=== PATIENT | female | born 2000 | race Caucasian/White ===

== ENCOUNTER 2022-10-30 10:52 | Outpatient (CLI) | payer OTHER, SELFPAY | END 2022-10-30 10:53 | disposition home or self-care (01) | LOC: NFLDREF 10-31 12:05 | PROVIDERS: PCP Physician Assistant Medical; Referring Provider Physician Assistant Medical; Visit Provider Physician Assistant Medical | DX: D50.9 Iron deficiency anemia, unspecified (principal); R53.83 Other fatigue | CPT/HCPCS: 82306; 82607; 83540; 83550; 84443 ==

== ENCOUNTER 2023-03-05 10:35 | Outpatient (CLI) | payer OTHER, SELFPAY ==
--- OUTSIDE RECORDS SUMMARY | 2023-03-05 10:38 | XMS_ITS | Clinical Summary ---
Author Name Unknown Organization [facility] Address [place], [place] [address] Care Team Providers Care Home Health Billing Specialist Name Role Phone Evens Mueller MD Primary Care Provider + Allergies No known active allergies Medications Medication Sig Dispensed Refills Start Date End Date Status adapalene (DIFFERIN) 0.1 % cream 0 10/21/2021 Active citalopram (CELEXA) 20 mg tablet 0 10/22/2021 Active Active Problems No known active problems Immunizations Name Administration Dates Next Due COVID-19 vaccine (Moderna 100mcg/0.5mL) PF, MDV 04/23/2022 COVID-19 vaccine (Moderna 50 mcg/0.5mL) 12YO+ BIVALENT PF, MDV 06/24/2022 DTP-HIB 05/07/2001 DTaP 09/22/2005, 1,2000,03/26 DTaP-HIB (TriHIBIT) 05/07/2001 HIB PRP-T (ActHIB,Hiberix) 2000,2000 ,2000 HPV 9 (Gardasil 9) 09/09/2014 Hepatitis A (Peds) 09/09/2014 Hepatitis B (Adult) 2000,2000 Hepatitis B, Unspecified 2000,2000 Human Papilloma Virus Vaccine 10/05/2012 Inactivated Polio Vaccine 09/22/2005,,2000,03/26 Influenza, IIV3 (Age >=3 years) 01/02/2003 Influenza, IIV4 05/05/2022 MMR 09/22/2005,05/07/2001 Meningococcal Vaccine (Menactra) 10/05/2012 Pneumococcal conj 7-Valent (Prevnar 7) 1,2000,2000 Tdap 06/04/2022,08/19/2011 Varicella Vaccine 08/19/2011,05/07/2001 Family History Medical History Relation Name Comments Diabetes Father Relation Name Status Comments Father Social History Tobacco Use Types Packs/Day Years Used Date Smoking Tobacco: Never Smokeless Tobacco: Never Tobacco Cessation:Counseling Given: Yes Alcohol Use Standard Drinks/Week Comments Yes 0 (1 standard drink = 0.6 oz pur e alcohol) occ PHQ-2 Answer Date Recorded PHQ-2 TOTAL SCORE 0 10/29/2021 Social Connections Answer Date Recorded Frequency of Communication with Friends and Fami ly Not on file 10/29/2021 Sex and Gender Information Value Date Recorded Sex Assigned at Not on file Gender Identity Not on file Sexual Orientation Not on file Obstetrics History Last Filed Vital Signs Vital Sign Reading Time Taken Comments Blood Pressure 119/74 10/29/2021 3:43 PM CDT Pulse 70 10/29/2021 3:43 PM CDT Temperature - - Respiratory Rate - - Oxygen Saturation 99% 10/29/2021 3:43 PM CDT Inhaled Oxygen Concentration - - Weight 95.4 kg (210 lb 6.4 oz) 10/29/2021 3:43 P M CDT Height 163.2 cm (5' 4.25) 10/29/2021 3:43 PM CD T Body Mass Index 35.83 10/29/2021 3:43 PM CDT Plan of Treatment Health Maintenance Due Date Last Done Comments HIV for age 15-65 02/02/2015 Chlamydia for age 16-24 2016 COVID-19 vaccine series ( season) 2022 06/24/2022, 04/23/2022 Influenza for age 9-49 10/10/2022 3, 01/02/2003 BMI (ht and wt on same day) for age 18+ 10/29/2022 10/29/2021 Depression screening for age 12+ 10/30/2022 10/30/2021, 10/29/2021 Pap test for age 21-65 05/13/2024 05/13/2021 Tetanus booster 06/04/2032 06/04/2022, 08/19/2011 Pneumococcal series for age 6-64 Aged Out 2000, 2000, 2000 No longer eligible based on patient's age to complete this topic HPV series for age 9-26 Completed 09/10/19, 10/05/2012 Hepatitis C screening for ag e 18-79 Completed 10/29/2021 Tdap Completed 06/04/2022, 08/19/2011 Care Teams Home Health Billing Specialist Relationship Specialty Start Date End Date Evens Mueller MD [address] [place] [address] PCP - General Family Practice 10/29/21
--- OUTSIDE RECORDS SUMMARY | 2023-03-05 10:38 | XMS_ITS | Encounter Summary ---
Author Name Unknown Organization [place] Address [facility] [place] [address] Care Team Providers Care Advanced Practice Psychiatric Nurse Name Role Phone No Ref-Primary, Physician Primary Care Provider Marian Manzanares APRN CAFETERIA CASHIER Unavailable + Encounter Details Date Type Department Care Team (Late st Contact Info) Description 12/07/2021 MyC Medical Advice [facility] [address] [place] [phone] Marian Manzanares APRN CAFETERIA CASHIER [address] [place] [address] Social History Tobacco Use Types Packs/Day Years Used Date Smoking Tobacco: Never Smokeless Tobacco: Never Comments:Dad smokes outside Alcohol Use Standard Drinks/Week Comments Not Asked 0 (1 standard drink = 0.6 oz pur e alcohol) PHQ-2 Answer Date Recorded PHQ-2 Score 0 11/11/2021 Sex and Gender Information Value Date Recorded Sex Assigned at Not on file Gender Identity Not on file Sexual Orientation Not on file documented as of this encounter Plan of Treatment Not on file documented as of this encounter Visit Diagnoses Not on filedocumented in this encounter Care Teams Advanced Practice Psychiatric Nurse Relationship Specialty Start Date End Date No Ref-Primary, Physician PCP - General 11/11/21 Marian Manzanares APRN CAFETERIA CASHIER [id number] [id number] Assigned PCP 10/24/21 documented as of this encounter
--- OUTSIDE RECORDS SUMMARY | 2023-03-05 10:38 | XMS_ITS | Referral Summary ---
Author Name Unknown Organization [place] Address Replaced by [facility] [place] [address] Care Team Providers Care Glassware Finisher Name Role Phone No Ref-Primary, Physician Primary Care Provider [facility] Hicks[facility] urban Sumaya MAHNAZ NUCLEAR PLANT CONSTRUCTION WORKER Unavailable + Allergies Active Allergy Reactions Criticality Noted Date Comments No Known Drug Allergy 06/07/2002 Medications Medication Sig Dispensed Refills Start Date End Date Status TYLENOL CHILDRENS COUGH 15-1-5-160 MG/5ML OR SYRP prn 0 Active TAMIFLU 12 MG/ML OR SUSRIndications:Influ ibis with other respiratory manifestations 3.75mL PO BID x 5 days QS 0 04/06/2007 Active Additional Information Patient not taking.Reported on 11/11/2021 ondansetron (ZOFRAN ODT) 4 MG ODT tabIndications:Nausea Take 2 tablets (8 mg) by mouth every 8 hours as needed for nausea 30 tablet 1 12/09/2021 Active Active Problems Problem Noted Date Diagnosed Date Class 2 severe obesity with serious comorbidity and body mass index (BMI) of 35.0 to 35.9 in adult, unspecified obesity type 11/13/2021 Last Assessment & Plan: Is having nausea and stomach pains with the Saxenda. Will prescribe Zofran to help with the side effects. Hopefully these side effects will subside with time. Consider taking it at nighttime or we can use a lower dose for longer. Elevated liver enzymes 11/13/2021 Last Assessment & Plan: AST 66 ALT 107 NAFLD fibrosis score is -3.45 which is in the severity of F0-F2 DD includes NAFLD/ALD, viral illness, Hepatitis C and B were negative, iron studies and ferritin were normal CBC normal TSH 2 We are working on decreasing processed foods out of her diet, will have future recommendations of eliminating alcohol, avoiding fructose and high fructose corn syrup. Immunizations Name Administration Dates Next Due DTAP (<7y) 09/22/2005,2000,2000 ,2000 DTP-Hib 05/07/2001 HIB (PRP-T) 2000,2000,2000 HepB 2000,2000,2000 ,2000 Influenza (IIV3) PF 01/02/2003 MMR 09/22/2005,05/07/2001 Pneumococcal (PCV 7) 2000,2000,03/26 Poliovirus, inactivated (IPV) 09/22/2005, 001,2000,2000 Varicella 05/07/2001 Social History Tobacco Use Types Packs/Day Years Used Date Smoking Tobacco: Never Smokeless Tobacco: Never Comments:Dad smokes outside Alcohol Use Standard Drinks/Week Comments Not Asked 0 (1 standard drink = 0.6 oz pur e alcohol) PHQ-2 Answer Date Recorded PHQ-2 Score 0 11/11/2021 Adolescent Education Answer Date Record ed Getting School Help Needed Not on file 11/25 Sex and Gender Information Value Date Recorded Sex Assigned at Not on file Gender Identity Not on file Sexual Orientation Not on file Last Filed Vital Signs Vital Sign Reading Time Taken Comments Blood Pressure 84/40 09/22/2005 1:45 PM CDT Pulse - - Temperature 37.8 ??C (100 ??F) 04/06/2007 6:00 PM ETL INFORMATICA DEVELOPER Respiratory Rate - - Oxygen Saturation - - Inhaled Oxygen Concentration - - Weight 94.3 kg (208 lb) 11/05/2021 3:38 PM CDT Height 162.6 cm (5' 4) 11/05/2021 3:38 PM CDT Body Mass Index 35.7 11/05/2021 3:38 PM CDT Plan of Treatment Not on file Care Teams Glassware Finisher Relationship Specialty Start Date End Date No Ref-Primary, Physician PCP - General 11/11/21 Marian Manzanares APRN NUCLEAR PLANT CONSTRUCTION WORKER [id number] [id number] Assigned PCP 10/24/21
--- OUTSIDE RECORDS SUMMARY | 2023-03-05 10:38 | XMS_ITS | Encounter Summary ---
Author Name Unknown Organization [place] Address [facility] [place] [address] Care Team Providers Care Doughnut Fryer Name Role Phone No Ref-Primary, Physician Primary Care Provider Marian Manzanares APRN PRICER Unavailable + Encounter Details Date Type Department Care Team (Late st Contact Info) Description 12/25/2021 MyC Medical Advice [facility] [address] [place] [phone] Marian Manzanares APRN PRICER [address] [place] [address] Social History Tobacco Use Types Packs/Day Years [...] on filedocumented in this encounter Care Teams Doughnut Fryer Relationship Specialty Start Date End Date No Ref-Primary, Physician PCP - General 11/11/21 Marian Manzanares APRN PRICER [phone] [address] [phone] Assigned PCP 10/24/21 documented as of this encounter
--- OUTSIDE RECORDS SUMMARY | 2023-03-05 10:38 | XMS_ITS | Encounter Summary ---
Author Name Unknown Organization [place] Address [facility] [place] [address] Care Team Providers Care Furniture Lumber Production Worker Name Role Phone No Ref-Primary, Physician Primary Care Provider Marian Manzanares APRN MANAGER SUBWAY Unavailable + Encounter Details Date Type Department Care Team (Late st Contact Info) Description 12/26/2021 MyC Medical Advice [facility] [address] [place] [phone] Marian Manzanares APRN MANAGER SUBWAY [address] [place] [address] Social History Tobacco Use Types Packs/Day Years [...] on filedocumented in this encounter Care Teams Furniture Lumber Production Worker Relationship Specialty Start Date End Date No Ref-Primary, Physician PCP - General 11/11/21 Marian Manzanares APRN MANAGER SUBWAY [id number] [id number] Assigned PCP 10/24/21 documented as of this encounter
--- OUTSIDE RECORDS SUMMARY | 2023-03-05 10:38 | XMS_ITS | Clinical Summary ---
Author Name Unknown Organization [place] Address On license of [facility] [place] [address] Care Team Providers Care Port Engineer Name Role Phone No Ref-Primary, Physician Primary Care Provider [facility] Hicks[facility] urban Sumaya MAHNAZ CONE WINDER Unavailable + Allergies Active Allergy Reactions Criticality [...] Poliovirus, inactivated (IPV) 09/22/2005, 001,2000,2000 Varicella 05/07/2001 Family History Medical History Relation Comments Diabetes Maternal Grandmother Mom's grand mother Hypertension Maternal Grandmother Hypertension Paternal Grandmother Relation Status Comments Maternal Grandmother Paternal Grandmother Social History Tobacco Use Types Packs/Day Years [...] 37.8 ??C (100 ??F) 04/06/2007 6:00 PM FOOD SERVICE AMBASSADOR Respiratory Rate - - Oxygen Saturation - - Inhaled Oxygen Concentration - - Weight 94.3 kg (208 lb) 11/05/2021 3:38 PM CDT Height 162.6 cm (5' 4) 11/05/2021 3:38 PM CDT Body Mass Index 35.7 11/05/2021 3:38 PM CDT Plan of Treatment Health Maintenance Due Date Last Done Comments ADVANCE CARE PLANNING 2000 ANNUAL REVIEW OF HM ORDERS 2000 CHLAMYDIA SCREENING 2000 COVID-19 Vaccine (#1) 2000 YEARLY PREVENTIVE VISIT 09/22/2006 09/23/19, 04/01/2004, 01/02/2003, Additional history exists HIV SCREENING 02/02/2015 HEPATITIS C SCREENING 02/02/2018 PAP 02/02/2021 DTAP/TDAP/TD IMMUNIZATION (7 - Td or Tdap) 08/18/2021 08/19/2011, 09/22/2005, 05/07/2001, Additional history exists INFLUENZA VACCINE (#1) 2022 11/24/2018, 2002 PHQ-2 (once per calendar year) 2023 11/11/2021 Pneumococcal Vaccine: Pediatrics (0 to 5 Years) and At-Risk Patients (6 to 64 Years) Aged Out 2000, 2000, 2000 No longer eligible based on patient's age to complete this topic HEPATITIS B IMMUNIZATION Completed 001, 2000, 2000, Additional history exists IPV IMMUNIZATION Completed 09/22/2005, , 2000, Additional history exists MENINGITIS IMMUNIZATION Aged Out 10/05/2012 No l onger eligible based on patient's age to complete this topic HPV IMMUNIZATION Completed 09/09/2014, 10/05/2012 RSV MONOCLONAL ANTIBODY Aged Out No l onger eligible based on patient's age to complete this topic Care Teams Port Engineer Relationship Specialty Start Date End Date No Ref-Primary, Physician PCP - General 11/11/21 Marian Manzanares APRN CONE WINDER [id number] [id number] Assigned PCP 10/24/21
--- OUTSIDE RECORDS SUMMARY | 2023-03-05 10:38 | XMS_ITS | Encounter Summary ---
Author Name Unknown Organization [place] Address Count includes the [facility] [place] [address] Care Team Providers Care Jack Spooler Tender Name Role Phone No Ref-Primary, Physician Primary Care Provider Marian Manzanares APRN SELECT BANKER Unavailable + Encounter Details Date Type Department Care Team (Late st Contact Info) Description 11/11/[address] [facility] [address] [place] [phone] Marian Manzanares APRN SELECT BANKER [id number] [place] [address] Social History Tobacco Use Types Packs/Day Years [...] on file Sexual Orientation Not on file COVID-19 Exposure Response Date Recorded In the last 10 days, have yo u been in contact with someone who was confirmed or suspected to have Coronavirus/COVID-19? No / Unsure 11/06/2021 2:06 PM CDT documented as of this encounter Plan of Treatment Not on file documented as of this encounter Visit Diagnoses Not on filedocumented in this encounter Care Teams Jack Spooler Tender Relationship Specialty Start Date End Date No Ref-Primary, Physician PCP - General 11/11/21 Marian Manzanares APRN [facility] [id number] [address] [id number] Assigned PCP 10/24/21 documented as of this encounter
== END 2023-03-05 10:36 | disposition home or self-care (01) ==
PROVIDERS: PCP Physician Assistant Medical; Visit Provider Physician Assistant Medical
DX: Z00.00 Encounter for general adult medical examination without abnormal findings (principal); R03.0 Elevated blood-pressure reading, without diagnosis of hypertension; E66.9 Obesity, unspecified; R19.5 Other fecal abnormalities; Z13.6 Encounter for screening for cardiovascular disorders; Z13.1 Encounter for screening for diabetes mellitus
CPT/HCPCS: 80061; 86258; 86364

== ENCOUNTER 2023-09-12 02:42 | Outpatient (CLI) | payer OTHER, SELFPAY ==
--- OUTSIDE RECORDS SUMMARY | 2023-09-13 02:17 | XMS_ITS | Encounter Summary ---
Author Organization [place] Address [address] [place] [address]. [place] [address] Care Team Providers Care Mechanic/Welder Name Role Phone No Ref-Primary, Physician Primary Care Provider Marian Manzanares APRN RELATIONS MGR Unavailable + Encounter Details Date Type Department Care Team (Late st Contact Info) Description 12/26/2021 [facility] [place] Medical Advice [facility] [address] [place] [phone] Marian Manzanares APRN RELATIONS MGR [address] [place] [address] Social History Tobacco Use Types Packs/Day Years [...] on filedocumented in this encounter Care Teams Mechanic/Welder Relationship Specialty Start Date End Date No Ref-Primary, Physician PCP - General 11/11/21 Marian Manzanares APRN [facility]ATIONS [facility] [id number] [address] [address] Assigned PCP 10/24/21 documented as of this encounter
--- OUTSIDE RECORDS SUMMARY | 2023-09-13 02:17 | XMS_ITS | Clinical Summary ---
Author Organization [place] Address [facility]0 [facility] [place] [address] Care Team Providers Care Tour Production Supervisor Name Role Phone No Ref-Primary, Physician Primary Care Provider Marian Pereyra AIRPLANE CLEANER TRANSPORTATION TECHNICIAN Unavailable + Allergies Active Allergy Reactions Criticality [...] 37.8 ??C (100 ??F) 04/06/2007 6:00 PM EMAIL ENGINEER Respiratory Rate - - Oxygen Saturation - [...] age to complete this topic Care Teams Tour Production Supervisor Relationship Specialty Start Date End Date No Ref-Primary, Physician PCP - General 11/11/21 Marian Manzanares APRN TRANSPORTATION TECHNICIAN [id number] [address] [id number] Assigned PCP 10/24/21
--- OUTSIDE RECORDS SUMMARY | 2023-09-13 02:17 | XMS_ITS | Encounter Summary ---
Author Organization [place] Address [address] [place] [address]. [place] [address] Care Team Providers Care Wharfinger Chief Name Role Phone No Ref-Primary, Physician Primary Care Provider Marian Manzanares APRN TAKE UP OPERATOR Unavailable + Encounter Details Date Type Department Care Team (Late st Contact Info) Description 12/07/2021 [facility] [place] [facility] [address] [place] [phone] Marian Manzanares APRN TAKE UP OPERATOR [address] [place] [address] Social History Tobacco Use Types Packs/Day Years [...] on filedocumented in this encounter Care Teams Wharfinger Chief Relationship Specialty Start Date End Date No Ref-Primary, Physician PCP - General 11/11/21 Marian Manzanares APRN TAKE UP OPERATOR [phone] [address] [id number] Assigned PCP 10/24/21 documented as of this encounter
--- OUTSIDE RECORDS SUMMARY | 2023-09-13 02:17 | XMS_ITS | Encounter Summary ---
Author Organization [place] Address [address] [place] [address]. [place] [address] Care Team Providers Care Strategic Accounts Manager Name Role Phone No Ref-Primary, Physician Primary Care Provider Marian Manzanares APRN CLOTH BLEACHING RANGE BACK TENDER Unavailable + Encounter Details Date Type Department Care Team (Late st Contact Info) Description 12/25/2021 [facility] [place] Medical Advice [facility] [address] [place] [phone] Marian Manzanares APRN CLOTH BLEACHING RANGE BACK TENDER [address] [place] [address] Social History Tobacco Use Types Packs/Day Years [...] on filedocumented in this encounter Care Teams Strategic Accounts Manager Relationship Specialty Start Date End Date No Ref-Primary, Physician PCP - General 11/11/21 Marian Manzanares APRN CLOTH BLEACHING RANGE BACK TENDER [address] [address] [phone] Assigned PCP 10/24/21 documented as of this encounter
--- OUTSIDE RECORDS SUMMARY | 2023-09-13 02:17 | XMS_ITS | Encounter Summary ---
Author Organization [place] Address [facility] [place] [address] Care Team Providers Care Quality Assurance Technician Name Role Phone No Ref-Primary, Physician Primary Care Provider Marian Manzanares APRN CONTRACT WRITER Unavailable + Encounter Details Date Type Department Care Team (Late st Contact Info) Description 11/11/2021 [facility] [place] [facility] [address] [place] [phone] Marian Manzanares APRN CONTRACT WRITER [address] [place] [address] Social History Tobacco Use Types Packs/Day Years [...] on filedocumented in this encounter Care Teams Quality Assurance Technician Relationship Specialty Start Date End Date No Ref-Primary, Physician PCP - General 11/11/21 Marian Manzanares APRN [facility] [id number] [address] [address] Assigned PCP 10/24/21 documented as of this encounter
--- OUTSIDE RECORDS SUMMARY | 2023-09-13 02:17 | XMS_ITS | Clinical Summary ---
Author Organization [facility] & [facility] Address [place], [place] [address] Care Team Providers Care Java Support Engineer Name Role Phone Evens Mueller MD Primary [...] CDT Need for hepatitis C screening test TRACKWALKER THIN PREP PAP SCREEN IMAGED Routine 05/13/2021 3:20 PM CDT from Last 3 Months or Most Recently Relevant to Health Maintenance Results * ANTI HCV (10/29/2021 4:22 PM CDT) HEPATITIS C ANTIBODY Non-React chris Non-React chris 10/30/2021 11:07 PM CDT [facility] [employer] LABORATORY-[facility] TRAL LABORATORY Comment:Antibodies to HCV no t detected; does not exclude the possibility of exposure to HCV. Blood BLOOD SPECIMEN / Unknown Venipuncture / Unknown 10/29/2021 4:22 PM CDT 10/29/2021 4:26 PM CDT Marichuy Brito PA-C SEND OUTS [facility] LABORATORY-CENTRAL LABORATORY [address] [place] [address], * TRACKWALKER THIN PREP PAP SCREEN IMAGED (05/13/2021 3:20 PM CDT) Case Report Gynecologic Cytology Report ? Case: [id number] ? Authorizing Provider: ??Mary Prince PA-C ?Collected: ? 05/13/2021 1520 ? Ordering Location: ? [facility] CENTRAL LAB ?Received: ?05/15/2021 0857 ? First Screen: ?Turner Abad ? Specimen: ?TRACKWALKER ThinPrep Vial Screening, Cervical/Vaginal ? 05/23/2021 11:44 AM CDT [facility] ENTRAR LABORATORY INTERPRETATION/ RESULT NEGATIVE FOR INTRAEPITHELIAL LESION OR MALIGNANCY (NIL) (none) 05/23/2021 11:44 AM [facility] ENTRAR LABORATORY IMEN ADEQUACY Satisfactory for evaluation Endocervical component present 05/23/2021 11:44 AM [facility] ENTRAL LABORATORY HPV REQUEST HPV if ASCUS 05/23/2021 11:44 AM [facility] ENTRAL LABORATORY Last Pap Result 11:44 AM T [facility] ENTRAL LABORATORY Comment:Never Additional Information 05/23/2021 11:44 AM T [facility] ENTRAL LABORATORY Comment: Interpreted at [facility] Laboratory - [facility] [place] [address] Automated Review Successful 05/23/2021 11:44 AM [facility] ENTRAL LABORATORY Comment:Specimen processed s uccessfully by automated compressor station engineer chief device, ThinPrep Imaging System, [employer] Note The pap test is a [...] and malignant lesions. 05/23/2021 11:44 AM CDT [facility] LABORATORY-C ENTRAL LABORATORY Other (Cervical/Vagina l) 05/13/2021 3:20 PM CDT 05/15/2021 8:57 AM CDT May Suresh LOPEZ PATHOLOGY/CYTOLOGY [facility] LABORATORY-CENTRAL LABORATORY [address] [place] [address] [address] [place] [address], [place] from Last 3 Months or Most Recently Relevant to Health Maintenance Care Teams Java Support Engineer Relationship Specialty Start Date End Date Evens Mueller MD [address] [place] [address] PCP - General Family Practice 10/29/21
--- OUTSIDE RECORDS SUMMARY | 2023-09-13 02:17 | XMS_ITS | Referral Summary ---
Author Organization [place] Address [facility] [address] Care Team Providers Care Commission Specialist Name Role Phone No Ref-Primary, Physician Primary Care Provider Marian Pereyra CRITICAL CARE PARAMEDIC REAL ESTATE CLOSER Unavailable + Allergies Active Allergy Reactions Criticality [...] 37.8 ??C (100 ??F) 04/06/2007 6:00 PM WAITER/WAITRESS FORMAL Respiratory Rate - - Oxygen Saturation - - Inhaled Oxygen Concentration - - Weight 94.3 kg (208 lb) 11/05/2021 3:38 PM CDT Height 162.6 cm (5' 4) 11/05/2021 3:38 PM CDT Body Mass Index 35.7 11/05/2021 3:38 PM CDT Plan of Treatment Not on file Care Teams Commission Specialist Relationship Specialty Start Date End Date No Ref-Primary, Physician PCP - General 11/11/21 Marian Manzanares APRN REAL ESTATE CLOSER [id number] [address] [id number] Assigned PCP 10/24/21
== END 2023-09-12 02:43 | disposition home or self-care (01) ==
LOC: AMB 09-13 02:15
PROVIDERS: PCP Physician Assistant Medical; Visit Provider Emergency Medicine
DX: T14.90XA Injury, unspecified, initial encounter (principal); V47.0XXA Car driver injured in collision with fixed or stationary object in nontraffic accident, initial encounter; Y92.410 Unspecified street and highway as the place of occurrence of the external cause
CPT/HCPCS: A0425; A0427

== ENCOUNTER 2023-09-12 03:34 | Emergency (ER) | payer OTHER, SELFPAY ==
[2023-09-12] VITALS (12 sets, daily range): BP systolic 141–144; BP diastolic 85–99; PULSE 114–144; RESP 16–20; TEMP 36.3–36.6; O2SAT 95–99; BMI 35.2
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
--- OUTSIDE RECORDS SUMMARY | 2023-09-12 03:48 | XMS_ITS | Encounter Summary ---
Author Organization [facility] Address [address] [place] [address]. [place] [address] Care Team Providers Care Fire Control Technician Name Role Phone No Ref-Primary, Physician Primary Care Provider Marian Manzanares APRN MORTGAGE CLERK Unavailable + Encounter Details Date Type Department Care Team (Late st Contact Info) Description 12[place]26/2021 [facility] [place] [facility] [address] [place] [phone] Marian Manzanares APRN MORTGAGE CLERK [address] [place] [address] Social History Tobacco Use Types Packs/Day Years [...] on filedocumented in this encounter Care Teams Fire Control Technician Relationship Specialty Start Date End Date No Ref-Primary, Physician PCP - General 11/11/21 Marian Manzanares APRN MORTGAGE CLERK [id number] [id number] Assigned PCP 10/24/21 documented as of this encounter
--- OUTSIDE RECORDS SUMMARY | 2023-09-12 03:48 | XMS_ITS | Encounter Summary ---
Author Organization [facility] Address [address] [place] [address]. [place] [address] Care Team Providers Care Identity Access Management Architect Name Role Phone No Ref-Primary, Physician Primary Care Provider Marian Manzanares APRN PHYSICAL THERAPY ASSISTANT INSTRUCTOR Unavailable + Encounter Details Date Type Department Care Team (Late st Contact Info) Description 12/07/2021 [facility] [place] Adv[place] [facility] [address] [place] [phone] Marian Manzanares APRN PHYSICAL THERAPY ASSISTANT INSTRUCTOR [address] [place] [address] Social History Tobacco Use Types Packs/Day Years [...] on filedocumented in this encounter Care Teams Identity Access Management Architect Relationship Specialty Start Date End Date No Ref-Primary, Physician PCP - General 11/11/21 Marian Manzanares APRN PHYSICAL THERAPY ASSISTANT INSTRUCTOR [id number] [address] [id number] Assigned PCP 10/24/21 documented as of this encounter
--- OUTSIDE RECORDS SUMMARY | 2023-09-12 03:48 | XMS_ITS | Encounter Summary ---
Author Organization [facility] Address [address] [place] [address]. [place] [address] Care Team Providers Care Satellite Tv Technician Installer Name Role Phone No Ref-Primary, Physician Primary Care Provider Marian Manzanares APRN LEATHER CARVER Unavailable + Encounter Details Date Type Department Care Team (Late st Contact Info) Description 12/25/2021 [facility] [place] [facility] [address] [place] [phone] Marain Manzanares APRN LEATHER CARVER [address] [place] [address] Social History Tobacco Use Types Packs/Day Years [...] on filedocumented in this encounter Care Teams Satellite Tv Technician Installer Relationship Specialty Start Date End Date No Ref-Primary, Physician PCP - General 11/11/21 Marian Manzanares APRN LEATHER CARVER [id number] [address] [id number] Assigned PCP 10/24/21 documented as of this encounter
--- OUTSIDE RECORDS SUMMARY | 2023-09-12 03:48 | XMS_ITS | Referral Summary ---
Author Organization [place] Address [facility] [place] [address] Care Team Providers Care Energy Broker Name Role Phone No Ref-Primary, Physician Primary Care Provider Marian Pereyra PROFESSOR OF GERMAN VP OUTCOMES Unavailable + Allergies Active Allergy Reactions Criticality Noted Date Comments No Known Drug Allergy 06/07/2002 Medications Medication Sig Dispensed Refills Start Date End Date Status TYLENOL CHILDRENS COUGH 15-1-5-160 MG/5ML OR SYRP prn Active TAMIFLU 12 MG/ML OR SUSRIndications:Influ ibis [...] 37.8 ??C (100 ??F) 04/06/2007 6:00 PM JOCKEY VALET Respiratory Rate - - Oxygen Saturation - - Inhaled Oxygen Concentration - - Weight 94.3 kg (208 lb) 11/05/2021 3:38 PM CDT Height 162.6 cm (5' 4) 11/05/2021 3:38 PM CDT Body Mass Index 35.7 11/05/2021 3:38 PM CDT Plan of Treatment Not on file Care Teams Energy Broker Relationship Specialty Start Date End Date No Ref-Primary, Physician PCP - General 11/11/21 Marian Manzanares APRN VP OUTCOMES [id number] [address] [id number] Assigned PCP 10/24/21
--- OUTSIDE RECORDS SUMMARY | 2023-09-12 03:48 | XMS_ITS | Clinical Summary ---
Author Organization [facility] [place] Address [facility] [place] [address] Care Team Providers Care Delivery Rep Name Role Phone No Ref-Primary, Physician Primary Care Provider Marian Pereyra SUPERVISOR PRODUCTION MURAL PAINTER Unavailable + Allergies Active Allergy Reactions Criticality [...] 37.8 ??C (100 ??F) 04/06/2007 6:00 PM PHOTOGRAPHIC RESTORER Respiratory Rate - - Oxygen Saturation - - Inhaled Oxygen Concentration - - Weight 94.3 kg (208 lb) 11/05/2021 3:38 PM CDT Height 162.6 cm (5' 4) 11/05/2021 3:38 PM CDT Body Mass Index 35.7 11/05/2021 3:38 PM CDT Plan of Treatment Health Maintenance Due Date Last Done Comments ADVANCE CARE PLANNING 2000 ANNUAL REVIEW OF HM ORDERS 2000 CHLAMYDIA SCREENING 2000 YEARLY PREVENTIVE VISIT 09/22/2006 09/23/19 06, 04/01/2004, 01/02/2003, Additional history exists HIV SCREENING 02/02/2015 HEPATITIS C SCREENING 02/02/2018 PAP 02/02/2021 DTAP/TDAP/TD IMMUNIZATION (7 - Td or Tdap) 08/18/2021 08/19/2011, 09/22/2005, 05/07/2001, Additional history exists COVID-19 Vaccine ( season) 2022 PHQ-2 (once per calendar year) 2023 11/11/2021 INFLUENZA VACCINE (#1) 2023 11/24/2018, 2002 Pneumococcal Vaccine: Pediatrics (0 to 5 Years) [...] age to complete this topic Care Teams Delivery Rep Relationship Specialty Start Date End Date No Ref-Primary, Physician PCP - General 11/11/21 Marian Manzanares APRN MURAL PAINTER [id number] [address] [id number] Assigned PCP 10/24/21
--- OUTSIDE RECORDS SUMMARY | 2023-09-12 03:49 | XMS_ITS | Clinical Summary ---
Author Organization [facility] & [facility] Address [place], [place] [address] Care Team Providers Care Soap Chipper Name Role Phone Evens Mueller MD Primary Care Provider + Allergies No known active allergies Medications Medication Sig Dispensed Refills Start Date End Date Status adapalene (DIFFERIN) 0.1 % cream 10/21/2021 Active citalopram (CELEXA) 20 mg tablet 10/22/2021 Active Active Problems No known active [...] vaccine series ( season) 2022 06/24/2022, 04/23/2022 BMI (ht and wt on same day) for age 18+ 10/29/2022 10/29/2021 Depression screening for age 12+ 10/30/2022 10/30/2021, 10/29/2021 Influenza for age 9-49 10/11/2023 , 01/02/2003 Pap test for age 21-65 05/13/2024 05/13/2021 Tetanus booster 06/04/2032 06/04/2022, 08/19/2011 Pneumococcal series for age 6-64 Aged Out 2000, 2000, 2000 No longer eligible based on patient's age to complete this topic HPV series for age 9-26 Completed 09/10/19 15, 10/05/2012 Hepatitis C screening for ag e 18-79 Completed 10/29/2021 Tdap Completed 06/04/2022, 08/19/2011 Procedures Procedure Name Priority Date/Time Associated Diagnosis Comments ANTI HCV Routine 10/29/2021 4:22 PM CDT Need for hepatitis C screening test METAL SPRAY OPERATOR THIN PREP PAP SCREEN IMAGED Routine 05/13/2021 3:20 PM CDT from Last 3 Months or Most Recently Relevant to Health Maintenance Results * ANTI HCV (10/29/2021 4:22 PM CDT) HEPATITIS C ANTIBODY Non-React chris Non-React chris 10/30/2021 11:07 PM CDT [facility] [employer] LABORATORY-[facility] TRAL LABORATORY Comment:Antibodies to HCV no t detected; does not exclude the possibility of exposure to HCV. Blood BLOOD SPECIMEN / Unknown Venipuncture / Unknown 10/29/2021 4:22 PM CDT 10/29/2021 4:26 PM CDT Marichuy Brito PA-C SEND OUTS [facility] LABORATORY-CENTRAL LABORATORY [address] [place] [address], * METAL SPRAY OPERATOR THIN PREP PAP SCREEN IMAGED (05/13/2021 3:20 PM CDT) Case Report Gynecologic Cytology Report ? Case: [id number] ? Authorizing Provider: ??Mary Prince PA-C ?Collected: ? 05/13/2021 1520 ? Ordering Location: ? [facility] CENTRAL LAB ?Received: ?05/15/2021 0857 ? First Screen: ?Turner Abad ? Specimen: ?METAL SPRAY OPERATOR ThinPrep Vial Screening, Cervical/Vaginal ? 05/23/2021 11:44 AM CDT [facility] ENTRID LABORATORY INTERPRETATION/ RESULT NEGATIVE FOR INTRAEPITHELIAL LESION OR MALIGNANCY (NIL) (none) 05/23/2021 11:44 AM [facility] ENTRID LABORATORY IMEN ADEQUACY Satisfactory for evaluation Endocervical component present 05/23/2021 11:44 AM [facility] ENTRAL LABORATORY HPV REQUEST HPV if ASCUS 05/23/2021 11:44 AM [facility] ENTRAL LABORATORY Last Pap Result 11:44 AM T [facility] ENTRAL LABORATORY Comment:Never Additional Information 05/23/2021 11:44 AM T [facility] ENTRAL LABORATORY Comment: Interpreted at [facility] - [facility] [place] [address] Automated Review Successful 05/23/2021 11:44 AM [facility] ENTRAL LABORATORY Comment:Specimen processed s uccessfully by automated orthotic/prosthetic clinician device, ThinPrep Imaging System, [employer] Note The pap test is a screening technique, not a diagnostic procedure. It is used primarily to screen for squamous cancers and precursor lesions. Published studies have shown that it is subject to both false negative and false positive results. The pap test should not be used as the sole means to diagnose or exclude pre-malignant and malignant lesions. 05/23/2021 11:44 AM CDT [facility] LABORATORY-C ENTRAL LABORATORY Other (Cervical/Vagina l) 05/13/2021 3:20 PM CDT 05/15/2021 8:57 AM CDT May Suresh LOPEZ PATHOLOGY/CYTOLOGY [facility] LABORATORY-CENTRAL LABORATORY [address] [place] [address] [address] [place] [address], [place] from Last 3 Months or Most Recently Relevant to Health Maintenance Care Teams Soap Chipper Relationship Specialty Start Date End Date Evens Mueller MD [address] [place] [address] PCP - General Family Practice 10/29/21
--- OUTSIDE RECORDS SUMMARY | 2023-09-12 03:49 | XMS_ITS | Encounter Summary ---
Author Organization [place] Address [facility]0 [facility] [place] [address] Care Team Providers Care Language Therapist Name Role Phone No Ref-Primary, Physician Primary Care Provider Marian Manzanares APRN LIEUTENANT GOVERNOR Unavailable + Encounter Details Date Type Department Care Team (Late st Contact Info) Description 11/11/2021 [facility] [place] [facility] Medical Advice [facility] [address] [place] [phone] Marian Manzanares APRN LIEUTENANT GOVERNOR [address] [place] [address] Social History Tobacco Use Types Packs/Day Years [...] on filedocumented in this encounter Care Teams Language Therapist Relationship Specialty Start Date End Date No Ref-Primary, Physician PCP - General 11/11/21 Marian Manzanares APRN [facility] [address] [address] [id number] Assigned PCP 10/24/21 documented as of this encounter
[2023-09-12 04:04] LABS: Basophils Absolute Auto 0.04 K/uL (0.00-0.30); Basophils Percent Auto 0.5 % (0.0-3.0); Eosinophils Absolute Auto 0.03 K/uL (0.00-0.50); Eosinophils Percent Auto 0.4 % (0.0-7.0); Hematocrit 40.6 % (33.0-51.0); Hemoglobin* 13.4 gm/dL (12.0-16.0); Immature Granulocytes Abs Auto 0.04 K/uL (0.00-0.30); Immature Granulocytes Pct Auto 0.5 %; Lymphocytes Absolute Auto 2.51 K/uL (0.90-2.90); Lymphocytes Percent Auto 33.5 % (20-44); Mean Corpuscular HGB Conc 33 gm/dL (32-36); Mean Corpuscular Hemoglobin 31 pg (26-34); Mean Corpuscular Volume 93 fL (80-100); Monocytes Percent Auto 7.6 % (0.0-11.0); Neutrophils Absolute Auto 4.31 K/uL (1.7-7.0); Neutrophils Percent Auto 57.5 % (42.0-72.0); Platelet Count* 279 K/uL (140-440); RDW Coefficient of Variation % 11.7 % (11.5-15.5); Red Blood Count 4.39 m/uL (4.00-5.20)
[2023-09-12 04:07] LABS: Slide Review Reflex No
[2023-09-12 04:18] LABS: Chloride* 104 mmol/L (96-114); Potassium* 3.4 mmol/L (3.6-5.1); Sodium* 139 mmol/L (135-149)
[2023-09-12 04:20] LABS: INR 0.96 (0.91-1.10); Prothrombin Time 13.4 Seconds
[2023-09-12 04:21] LABS: Anion Gap 12 mEq/L (7-15); Blood Urea Nitrogen* 8 mg/dL (5-24); Carbon Dioxide* 23 mmol/L (20-32); Creatinine* 0.9 mg/dL (0.5-1.5); Est. Creatinine Clearance* 83.95; Estimated Glomerular Filt Rate 92 ml/min; Glucose* 120 mg/dL (60-115)
[2023-09-12 04:22] LABS: Calcium* 9.1 mg/dL (8.4-10.6)
[2023-09-12 04:32] LABS: HCG Qualitative Serum* Negative (Negative)
== END 2023-09-12 06:26 | disposition home or self-care (01) ==
PROVIDERS: Emergency Provider Emergency Medicine; PCP Physician Assistant Medical
DX: R00.0 Tachycardia, unspecified (principal); F10.129 Alcohol abuse with intoxication, unspecified
CPT/HCPCS: 36415; 70450; 71260; 72125; 74177; 80048; 84703; 85025; 85610; 93005; 99284; 99291; G0390; Q9967

== ENCOUNTER 2024-02-11 15:34 | Outpatient (CLI) | payer OTHER, SELFPAY ==
[2024-02-12 00:09] LABS: Chlamydia DNA Amplified* NOT DETECTED (No Detected); GC DNA Amplified* NOT DETECTED (No Detected)
[2024-02-18 15:10] LABS: Pap Test Reviewed by Path Done
== END 2024-02-11 15:35 | disposition home or self-care (01) ==
PROVIDERS: PCP Physician Assistant Medical; Visit Provider Physician Assistant Medical
DX: R10.2 Pelvic and perineal pain (principal); R03.0 Elevated blood-pressure reading, without diagnosis of hypertension; Z11.3 Encounter for screening for infections with a predominantly sexual mode of transmission
CPT/HCPCS: 87491; 87591; 87624; 87625; 88141; 88142

== ENCOUNTER 2024-03-17 13:32 | Outpatient (CLI) | payer OTHER, SELFPAY | END 2024-03-17 13:33 | disposition home or self-care (01) | LOC: NFLDREF 03-23 01:14 | PROVIDERS: PCP Physician Assistant Medical; Referring Provider Physician Assistant Medical; Visit Provider Physician Assistant Medical | DX: N76.0 Acute vaginitis (principal); N39.0 Urinary tract infection, site not specified | CPT/HCPCS: 87086 ==

== ENCOUNTER 2024-07-26 13:17 | Outpatient (CLI) | payer OTHER, SELFPAY ==
[2024-07-26 23:12] LABS: Chlamydia DNA Amplified* NOT DETECTED (No Detected); GC DNA Amplified* NOT DETECTED (No Detected)
== END 2024-07-26 13:18 | disposition home or self-care (01) ==
LOC: LKVREF 13:18
PROVIDERS: PCP Physician Assistant Medical; Visit Provider Emergency Medicine
DX: N76.0 Acute vaginitis (principal); N39.0 Urinary tract infection, site not specified; B96.20 Unspecified Escherichia coli [E. coli] as the cause of diseases classified elsewhere; Z11.3 Encounter for screening for infections with a predominantly sexual mode of transmission
CPT/HCPCS: 87086; 87491; 87591

== ENCOUNTER 2024-11-17 11:14 | Outpatient (CLI) | payer OTHER, SELFPAY | END 2024-11-17 11:15 | disposition home or self-care (01) | LOC: LKVREF 11:20 | PROVIDERS: PCP Physician Assistant Medical; Visit Provider Physician Assistant Medical | DX: N76.0 Acute vaginitis (principal) | CPT/HCPCS: 87109 ==

== ENCOUNTER 2024-11-22 11:40 | Outpatient (CLI) | payer OTHER, SELFPAY | END 2024-11-22 11:41 | disposition home or self-care (01) | LOC: NFLDREF 12-08 02:39 | PROVIDERS: PCP Physician Assistant Medical; Referring Provider Physician Assistant Medical; Visit Provider Nurse Practitioner Family | DX: N39.0 Urinary tract infection, site not specified (principal) | CPT/HCPCS: 87086 ==